=== PATIENT | female | born 1980 | race Caucasian/White ===

== ENCOUNTER 2018-06-30 21:30 | Outpatient (CLI) | payer OTHER ==
[2018-06-30] MEDS ORDERED: PRENATAL TABLE1 EAC1 PO (22:12)
== END 2018-07-01 14:10 | disposition home or self-care (01) ==
LOC: OBS/DEL 21:30
DX: O26.892 Other specified pregnancy related conditions, second trimester (principal); N23 Unspecified renal colic; Z34.82 Encounter for supervision of other normal pregnancy, second trimester

== ENCOUNTER 2018-07-05 14:25 | Inpatient (IN) | payer OTHER ==
[~2018-07-05] VITALS: Ht 160 cm; Wt 86.6 kg
[~2018-07-05 14:25] MED LIST: PRENATAL TABLE1 EAC1 PO
== END 2018-07-08 15:17 | disposition home or self-care (01) | DRG 833 ==
LOC: LDR 14:25 → OB/GYN 14:25
PROVIDERS: ADMIT Specialist
PROC: BT4JZZZ Ultrasonography of Kidneys and Bladder (ICD-10-PCS; principal; 2018-07-05)
PROC: 4A1HXCZ Monitoring of Products of Conception, Cardiac Rate, External Approach (ICD-10-PCS; 2018-07-05)
DX: O26.892 Other specified pregnancy related conditions, second trimester (principal); R31.0 Gross hematuria; Z34.82 Encounter for supervision of other normal pregnancy, second trimester

== ENCOUNTER 2018-09-21 12:04 | Inpatient (IN) | payer OTHER ==
[~2018-09-21] VITALS: Ht 160 cm; Wt 89.8 kg
== END 2018-09-24 13:18 | disposition home or self-care (01) | DRG 788 ==
LOC: OB/GYN → SURG-SUITE 12:24 → LDR 12:24 → SURG-SUITE 15:05 → OB/GYN 09-29 14:59
PROVIDERS: ADMIT Specialist
PROC: 4A1HXCZ Monitoring of Products of Conception, Cardiac Rate, External Approach (ICD-10-PCS; 2018-09-21)
PROC: 10D00Z1 Extraction of Products of Conception, Low, Open Approach (ICD-10-PCS; principal; 2018-09-21 18:00)
DX: O82 Encounter for cesarean delivery without indication (principal); Z3A.37 37 weeks gestation of pregnancy; Z37.0 Single live birth